=== PATIENT | female | born 1930 | race Caucasian/White ===

== ENCOUNTER 2016-10-29 10:13 | Inpatient (IN) | payer OTHER, MEDICARE ==
[~2016-10-29] VITALS: Ht 157.5 cm; Wt 79.4 kg
--- NOTE | 2016-10-29 10:22 | NUR ---
PT STATES THAT SHE HAS BEEN HAVING R FLANK PAIN FOR THE PAST COUPLE OF DAYS, PAIN HAS BEEN SEVERE SINCE LAST PM, DENIES V/D BUT HAS NAUSEA. DENIES BLOOD IN URINE, COMPLAINS OF INCREASED THIRST AND URINATING ALOT.
--- NOTE | 2016-10-29 10:30 | NUR ---
PT TO ROOM 2 VIA W/C. CHANGED INTO GOWN. ASSISTED TO STRETCHER, AWAITING PROVIDER EVAL.
--- NOTE | 2016-10-29 10:32 | ED GENERAL ADULT ---
History of Present Illness General Chief Complaint: General Adult Stated Complaint: NVD, R SIDE LOW BACK/HIP PAIN Source: patient, old records, friend Exam Limitations: no limitations Allergies Coded Allergies: codeine (UNKNOWN 10/29/15) Reconcile Medications Amlodipine Besylate 2.5 MG TABLET 1 TAB PO DAILY BP (Reported) Lisinopril 20 MG TABLET 1 TAB PO DAILY BP (Reported) Rosuvastatin Calcium (Crestor) 5 MG TABLET 1 TAB PO DAILY CHOLESTEROL ( Reported) Triage Note: PT STATES THAT SHE HAS BEEN HAVING R FLANK PAIN FOR THE PAST COUPLE OF DAYS, PAIN HAS BEEN SEVERE SINCE LAST PM, DENIES V/D BUT HAS NAUSEA. DENIES BLOOD IN URINE, COMPLAINS OF INCREASED THIRST AND URINATING ALOT. Triage Nurses Notes Reviewed? yes HPI: Patient is an 86-year-old female presents complaining of nausea, dry heaving, right low back pain. Symptoms onset at midnight. Pain is sharp, severe, worsens with palpation. Shaking chills onset upon arrival to the emergency department. Associated urinary urgency and frequency. Patient has taken Aleve with no improvement. Denies fevers, abdominal pain, hematuria, vomiting. (ROSA BALTAZAR) Vital Signs & Intake/Output Vital Signs & Intake/Output Vital Signs Date Time Temp Pulse Resp B/P Pulse O2 O2 Flow FiO2 Ox Delivery Rate 10/29 1234 97.6 102 18 102/55 94 Room Air 10/29 1230 95 Room Air 10/29 1042 99.1 10/29 1019 97.3 88 18 173/98 97 Room Air Past History Travel History Traveled to [place] past 21 day No Medical History Any Pertinent Medical History? see below for history Neurological: NONE EENT: NONE Cardiovascular: hypertension, hyperlipidemia Respiratory: NONE Gastrointestinal: NONE Hepatic: NONE Renal: NONE Musculoskeletal: NONE Psychiatric: NONE Endocrine: NONE Blood Disorders: NONE Cancer(s): colon/rectal cancer Surgical History Surgical History: thyroidectomy, partial colectomy Psychosocial History What is your primary language Citizen Of [place] Tobacco Use: Never used ETOH Use: denies use Illicit Drug Use: denies illicit drug use Family History Hx Contributory? No (ROSA BALTAZAR) Review of Systems Review of Systems Constitutional: Reports: chills, malaise, weakness. EENTM: Reports: no symptoms. Respiratory: Denies: cough, short of breath. Cardiovascular: Denies: chest pain. GI: Reports: nausea. Denies: abdominal pain, diarrhea, vomiting. Genitourinary: Reports: frequency, urgency. Musculoskeletal: Reports: back pain. Skin: Reports: no symptoms. Neurological/Psychological: Reports: no symptoms. Hematologic/Endocrine: Reports: no symptoms. Immunologic/Allergic: Reports: no symptoms. (ETHAN COHEN,ROSA) Physical Exam Physical Exam General Appearance: alert, awake, shaking chills Head: atraumatic, normal appearance Eyes: Bilateral: normal appearance, PERRL, EOMI. Ears, Nose, Throat: normal pharynx, normal ENT inspection, hearing grossly normal Neck: normal inspection, supple, full range of motion Respiratory: normal breath sounds, chest non-tender, no respiratory distress, lungs clear Cardiovascular: tachycardia (regular rhythm) Gastrointestinal: normal bowel sounds, soft, non-tender Back: normal inspection, normal range of motion, no vertebral tenderness, right lumbar paraspinal tenderness Extremities: normal inspection, normal capillary refill, normal range of motion, no edema Neurologic/Psych: no motor/sensory deficits, awake, alert, oriented x 3, normal gait, normal mood/affect Skin: intact, normal color, warm/dry Lymphatic: no anterior cervical clary Core Measures ACS in differential dx? No CVA/TIA Diagnosis: No Severe Sepsis Present: No Septic Shock Present: No (ETHAN COHEN,ROSA) Progress Differential Diagnoses I considered the following diagnoses in my evaluation of the patient: Kidney stone, urosepsis, bacteremia, intra-abdominal infection, AAA Diagnostic Imaging: Viewed by Me: CT Scan. Discussed w/RAD: CT Scan. Radiology Impression: PATIENT: FLEX YIP PRESENT AGE: 86 PATIENT ACCOUNT NO: [id number] : 31 LOCATION: [facility] ORDERING PHYSICIAN: ROSA COHEN SERVICE DATE: 10/29/16 EXAM TYPE: CAT - CT ABD & PELVIS W/O IV CONTRAS EXAMINATION: CT ABDOMEN AND PELVIS WITHOUT CONTRAST CLINICAL INFORMATION: Right back pain, chills, urgency and frequency. Evaluate for kidney stone. COMPARISON: None TECHNIQUE: Multidetector volumetric imaging was performed from the superior aspect of the liver through the pubic symphysis. Sagittal and coronal reformatted images were obtained on the technologist's workstation. DLP: 888 mGy-cm FINDINGS: SIDE BOSS: Obese body habitus. LUNG BASES: Minimal atelectasis in dependent aspect of each lower lobe. Linear focus of scar atelectasis in the lateral left lower lobe. Atherosclerotic calcification of coronary arteries and thoracic aorta. LIVER, GALLBLADDER, AND BILIARY TREE: Liver has normal size, contour and attenuation. Gallbladder is unremarkable. No intrahepatic or extrahepatic bile duct dilatation. PANCREAS: Unremarkable. SPLEEN: Prominent spleen measures 12.2 cm AP and 12 cm craniocaudal and at its hilum, it is 4.6 cm wide No focal splenic lesion. ADRENAL GLANDS: Unremarkable. Right KIDNEY: 1.1 cm hyperdense focus of 60 Hounsfield unit attenuation at the lower pole the right kidney is likely a hyperdense cyst. There is a 0.5 cm calculus within the renal pelvis associated with mild pelviectasis. There is perinephric and periureteral edema without focal fluid collection. The right ureter is normal in caliber and there is no evidence of ureterolithiasis. LEFT KIDNEY: 0.9 cm hyperdense focus at the medial aspect of the left upper pole has a density of 86 HU -- consistent with hyperdense cyst. No nephrolithiasis or hydronephrosis. The left ureter is normal in caliber and there is no evidence of ureterolithiasis. BLADDER: Unremarkable. GASTROINTESTINAL TRACT: Stomach is grossly unremarkable. Bowel loops are normal in caliber. There are few scattered colonic diverticula without diverticulitis. Intact rectosigmoid anastomosis is noted. No ascites. ABDOMINAL WALL: Fat- containing umbilical hernia measures 2.1 cm wide. LYMPH NODES: No pathologic sized lymph nodes within the abdomen or pelvis. VASCULAR: Atherosclerotic calcification of the abdominal aorta and iliac arteries without aneurysm. There are atherosclerotic calcifications of right renal artery branches. PELVIC VISCERA: Status post hysterectomy. No pelvic mass or free fluid. Multiple phleboliths are present within the lower pelvis. OSSEOUS STRUCTURES: No suspicious lesions within the degenerated lumbar spine. 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 Also, there is facet arthropathy of L4-L5 with minimal anterolisthesis of L4 on L5. There is osteoarthrosis of the sacroiliac joints and pubic symphysis. IMPRESSION: 1. Mild pelviectasis of the right kidney. The mildly dilated renal pelvis contains a 0.5 cm stone. The perinephric and periureteral edema is nonspecific. There are no stones identified within the nondilated right ureter. Consider correlation with urinalysis and culture to ensure absence of a superimposed urinary tract infection. 2. Hyperdense renal cysts. 3. Mild splenomegaly. 4. Fat-containing umbilical hernia. 5. Atherosclerosis of the aorta and branch vessels without aneurysm. DICTATED BY: YVES BRUNSON MD DATE/ TIME DICTATED:10/29/161220 STATE PATROL OFFICER:JOLENE DATE/TIME TRANSCRIBED: 10/29/161220 CONFIDENTIAL, DO NOT COPY WITHOUT APPROPRIATE AUTHORIZATION. < Electronically signed in Other Vendor System> SIGNED BY: YVES BRUNSON MD 10/29/16 1238 Initial ED EKG: none (ROSA BALTAZAR) Plan of Care: Orders Procedure Date/time Status Regular Diet 10/29 L Active LACTIC ACID 10/29 1342 Active Patient Data 10/29 1320 Active Admit to inpatient 10/29 1319 Active BLOOD CULTURE 10/29 1155 Active CULTURE,URINE 10/29 1042 Active BLOOD CULTURE 10/29 1042 Active URINALYSIS 10/29 1042 Complete LACTIC ACID 10/29 1042 Complete COMPREHENSIVE METABOLIC PANEL 10/29 1042 Complete CBC WITHOUT DIFFERENTIAL 10/29 1042 Complete Laboratory Tests 10/29/16 1218: Urinalysis LIGHT H, Urine Color YEL, Urine Clarity CLEAR, Urine pH 6.0, Ur Specific [place] 1.020, Urine Protein TRACE H, Urine Ketones NEG, Urine Nitrite NEG, Urine Bilirubin NEG, Urine Urobilinogen 0.2, Ur Leukocyte Esterase TRACE H , Ur Microscopic SEDIMENT EXAMINED, Urine RBC 10-15 H, Urine WBC 5-10 H, Ur Epithelial Cells FEW, Urine Bacteria FEW H, Hyaline Casts RARE H, Urine Mucus FEW, Urine Hemoglobin MOD H, Urine Glucose NEG 10/29/16 1136: Anion Gap 17 H, Estimated GFR 25 L, BUN/Creatinine Ratio 24.2, Glucose 99, Lactic Acid 2.0, Calcium 9.1, Total Bilirubin 0.9, AST 20, ALT 36, Alkaline Phosphatase 105, Total Protein 7.3, Albumin 3.9, Globulin 3.4, Albumin/Globulin Ratio 1.1, CBC w Diff MAN DIFF ORDERED, RBC 5.24, MCV 86.4, MCH 28.9, RDW 15.5 H, MPV 7.3 L, Gran % 85.9 H, Lymphocytes % 2.3 L, Monocytes % 8.9, Eosinophils % 0.4, Basophils % 2.5 H, Absolute Granulocytes 18.0 H, Segmented Neutrophils 84 H, Band Neutrophils 6 H, Absolute Lymphocytes 0.5 L, Lymphocytes 2 L, Monocytes 8, Absolute Monocytes 1.9 H, Absolute Eosinophils 0.1, Absolute Basophils 0.5, Platelet Estimate ADEQUATE, Normocytic RBCs VERIFIED, Normochromic RBCs VERIFIED, PUBS MCHC 33.4 Microbiology 10/29 1218 URINE ROUT: Urine Culture - RECD 10/29 1210 BLOOD: Blood Culture - RECD 10/29 1137 BLOOD: Blood Culture - CAN Cancelled: QNS 10/29 1110 BLOOD: Blood Culture - RECD Discussed with and seen by Dr. Yanez. 10/29/2016 12:13:59 PM: Patient significantly more comfortable, pain significantly improved and nausea improved. Awaiting results of labs and CT scan. 10/29/2016 1:12:55 PM: Results of labs and imaging discussed with patient. Discussed with Dr. Carl: will admit patient. (ROSA BALTAZAR) Departure Departure Disposition: STILL A PATIENT Condition: Stable Clinical Impression Primary Impression: Sepsis due to urinary tract infection Secondary Impressions: Acute kidney injury Referrals: CORWIN ANAND,HOLLY Carter (PCP/Family) Departure Forms: Customer Survey General Discharge Information Admission Note Spoke With: CARMEL CARL MD Documentation of Exam: Documentation of any treatments & extenuating circumstances including Concerns Regarding Discharge (functional status, medication knowledge or non-compliance, living conditions, etc.) that warrant an admission rather than observation: IV antibiotics, IV fluids, panculture. Patient meets sepsis criteria, concern for bacteremia with patient's rigors on presentation and her significant elevated white blood cell count. Concern for significant deterioration if discharged home. (ROSA BALTAZAR) PA/VISUALIZER Co-Sign Statement Statement: ED Attending supervision documentation- [x] I saw and evaluated the patient. I have also reviewed all the pertinent lab results and diagnostic results. I agree with the findings and the plan of care as documented in the PA's/VISUALIZER's documentation. [] I have reviewed the ED Record and agree with the PA's/VISUALIZER's documentation. [] Additions or exceptions (if any) to the PAs/VISUALIZER's note and plan are summarized below: [] ([facility] ANAND,VIV Downs) Critical Care Note Critical Care Note Critical Care Time: non-applicable (ETHAN COHEN,ROSA)
--- NOTE | 2016-10-29 11:00 | NUR ---
PT DIFFICULT STICK. IV ACCESS ATTEMPTED BY THIS RN AND URBAN BENAVIDEZ. BENJAMÍN RN AT BEDSIDE. PT BEGAN VOMITING DURING IV INSERTION.
--- NOTE | 2016-10-29 11:50 | NUR ---
TO CAT SCAN.
--- NOTE | 2016-10-29 11:56 | NUR ---
LAB CALLED, STATING THEY ARE "REJECTING" 2ND SET OF BLOOD CULTURE DUE TO INSUFFICIENT AMOUNT IN BOTTLE.
--- NOTE | 2016-10-29 11:58 | NUR ---
BACK FROM CAT SCAN
[2016-10-29 12:08] LABS: ABSOLUTE BASOPHIL COUNT 0.5 /CUMM (0.0-0.2); ABSOLUTE EOSINOPHIL COUNT 0.1 /CUMM (0.0-0.7); ABSOLUTE LYMPH COUNT 0.5 /CUMM (1.2-3.4); ABSOLUTE MONOCYTE COUNT 1.9 /CUMM (0.10-0.60); BASOPHIL % 2.5 % (0.0-2.0); EOSINOPHIL % 0.4 % (0-5); GRANULOCYTE % 85.9 % (42.2-75.2); HEMATOCRIT 45.3 % (37-47); MEAN CORPUSCULAR HGB 28.9 PG (27.0-31.0); MEAN CORPUSCULAR HGB CONC 33.4 G/DL (33.0-37.0); MEAN CORPUSCULAR VOLUME 86.4 FL (81.0-99.0); MEAN PLATELET VOLUME 7.3 FL (7.4-10.4); PLATELET COUNT 328 /CUMM (130-400); RBC DISTRIBUTION WIDTH 15.5 % (11.5-14.5); RED BLOOD CELL CT 5.24 /CUMM (4.20-5.40)
--- NOTE | 2016-10-29 12:17 | NUR ---
CRITICAL TEST RESULTS [id number] FLEX YIP 86 F TESTS AND RESULTS: LACTIC ACID 2.0 Results received and read back by: EARNEST GOFF Results received date and time: 10/29/16 1217 The following provider was notified of the results, and read the results back: VICKI LONG Notified date and time: 10/29/16 at 1217
--- NOTE | 2016-10-29 12:18 | NUR ---
URINE TRIO SENT.
--- NOTE | 2016-10-29 12:38 | CT SCAN REPORT ---
EXAMINATION: CT ABDOMEN AND PELVIS WITHOUT CONTRAST CLINICAL INFORMATION: Right back pain, chills, urgency and frequency. Evaluate for kidney stone. COMPARISON: None TECHNIQUE: Multidetector volumetric imaging was performed from the superior aspect of the liver through the pubic symphysis. Sagittal and coronal reformatted images were obtained on the technologist's workstation. 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 LUNG BASES: Minimal atelectasis in dependent aspect of each lower lobe. Linear focus of scar atelectasis in the lateral left lower lobe. Atherosclerotic calcification of coronary arteries and thoracic aorta. LIVER, GALLBLADDER, AND BILIARY TREE: Liver has normal size, contour and attenuation. Gallbladder is unremarkable. No intrahepatic or extrahepatic bile duct dilatation. PANCREAS: Unremarkable. SPLEEN: Prominent spleen measures 12.2 cm AP and 12 cm craniocaudal and at its hilum, it is 4.6 cm wide No focal splenic lesion. ADRENAL GLANDS: Unremarkable. Right KIDNEY: 1.1 cm hyperdense focus of 60 Hounsfield unit attenuation at the lower pole the right kidney is likely a hyperdense cyst. There is a 0.5 cm calculus within the renal pelvis associated with mild pelviectasis. There is perinephric and periureteral edema without focal fluid collection. The right ureter is normal in caliber and there is no evidence of ureterolithiasis. LEFT KIDNEY: 0.9 cm hyperdense focus at the medial aspect of the left upper pole has a density of 86 HU -- consistent with hyperdense cyst. No nephrolithiasis or hydronephrosis. The left ureter is normal in caliber and there is no evidence of ureterolithiasis. BLADDER: Unremarkable. GASTROINTESTINAL TRACT: Stomach is grossly unremarkable. Bowel loops are normal in caliber. There are few scattered colonic diverticula without diverticulitis. Intact rectosigmoid anastomosis is noted. No ascites. ABDOMINAL WALL: Fat-containing umbilical hernia measures 2.1 cm wide. LYMPH NODES: No pathologic sized lymph nodes within the abdomen or pelvis. VASCULAR: Atherosclerotic calcification of the abdominal aorta and iliac arteries without aneurysm. There are atherosclerotic calcifications of right renal artery branches. PELVIC VISCERA: Status post hysterectomy. No pelvic mass or free fluid. Multiple phleboliths are present within the lower pelvis. OSSEOUS STRUCTURES: No suspicious lesions within the degenerated lumbar spine. 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 Also, there is facet arthropathy of L4-L5 with minimal anterolisthesis of L4 on L5. There is osteoarthrosis of the sacroiliac joints and pubic symphysis. IMPRESSION: 1. Mild pelviectasis of the right kidney. The mildly dilated renal pelvis contains a 0.5 cm stone. The perinephric and periureteral edema is nonspecific. There are no stones identified within the nondilated right ureter. Consider correlation with urinalysis and culture to ensure absence of a superimposed urinary tract infection. 2. Hyperdense renal cysts. 3. Mild splenomegaly. 4. Fat-containing umbilical hernia. 5. Atherosclerosis of the aorta and branch vessels without aneurysm.
[2016-10-29] MEDS ORDERED: CRESTOR5 M1 PO (12:58)
[2016-10-29] MEDS ORDERED: LISINOPRIL20 M1 PO (12:58)
[2016-10-29] MEDS ORDERED: AMLODIPINE BES2.5 M1 PO (12:59)
--- NOTE | 2016-10-29 13:36 | History & Physical ---
JENNIFER ANAND,[facility] – [place] 10/29/16 1335: General Information and HPI MD Statement: I have seen and personally examined FLEX YIP and documented this H&P. The patient is a 86 year old F who presented with a patient stated chief complaint of right-sided flank/back pain. Source of Information: patient Exam Limitations: no limitations History of Present Illness: Ms. Yip is a 86 y/o F with PMHx of HTN, HLD, osteoarthritis and colon cancer in 1999 s/p resection who presents with right-sided flank/back pain for 2 days. Patient was in her usual state of health up until 3 days ago when she developed shaking chills, nausea with dry heaving, and mild diarrhea. Last night , she woke up with excruciating aching pain in her right flank, with minimal relief from a heat pad, which prompted her to call her close friend who brought her to the ED. Since the onset of symptoms, she has had decreased oral intake. She denies fever, abdominal pain, dysuria or vomiting. Allergies/Medications Allergies: Coded Allergies: codeine (UNKNOWN 10/29/15) Home Med list Amlodipine Besylate 2.5 MG TABLET 1 TAB PO DAILY BP (Reported) Lisinopril 20 MG TABLET 1 TAB PO DAILY BP (Reported) Rosuvastatin Calcium (Crestor) 5 MG TABLET 1 TAB PO DAILY CHOLESTEROL ( Reported) Past History Travel History Traveled to [place] past 21 day No Medical History Neurological: NONE EENT: NONE Cardiovascular: hypertension, hyperlipidemia Respiratory: NONE Gastrointestinal: NONE Hepatic: NONE Renal: NONE Musculoskeletal: fracture (elbow), osteoarthritis Psychiatric: NONE Endocrine: NONE Blood Disorders: NONE Cancer(s): colon/rectal cancer GENERAL PRODUCTION MANAGER/Reproductive: endometriosis Surgical History Surgical History: hysterectomy, thyroidectomy Past Family/Social History Psychosocial History Where do you live? Home Who Do You Live With? self Primary Language: German Smoking Status: Never Smoked ETOH Use: denies use Illicit Drug Use: denies illicit drug use Functional Ability ADLs Independent: dressing, eating, toileting, bathing. Ambulation: cane IADLs Independent: shopping, housework, finances, food prep, telephone, transportation , medication admin. Review of Systems Review of Systems Constitutional: Reports: chills. EENTM: Reports: no symptoms. Cardiovascular: Denies: chest pain. Respiratory: Denies: cough, short of breath. GI: Reports: nausea. Denies: abdominal pain, vomiting. Genitourinary: Reports: frequency. Denies: dysuria, urgency. Musculoskeletal: Reports: no symptoms. Skin: Reports: no symptoms. Neurological/Psychological: Reports: no symptoms. Hematologic/Endocrine: Reports: no symptoms. Immunologic/Allergic: Reports: no symptoms. All Other Systems: Reviewed and Negative Exam & Diagnostic Data Last 24 Hrs of Vital Signs/I&O Vital Signs Date Time Temp Pulse Resp B/P Pulse O2 O2 Flow FiO2 Ox Delivery Rate 10/29 2244 98.3 73 19 100/60 92 Room Air 10/29 1745 98.0 88 20 92/58 94 Room Air 10/29 1454 97.8 99 18 103/59 95 Room Air 10/29 1234 97.6 102 18 102/55 94 Room Air 10/29 1230 95 Room Air 10/29 1042 99.1 10/29 1019 97.3 88 18 173/98 97 Room Air Intake & Output 10/29 1600 10/29 0800 10/29 0000 Intake Total 1000 Output Total Balance 1000 Intake, IV 1000 Physical Exam General Appearance Alert, Oriented X3, No Acute Distress HEENT Dry Mucous Membranes Neck Supple Cardiovascular Regular Rate, Normal S1, Normal S2 Lungs Clear to Auscultation Abdomen Soft, No Tenderness, Positive Bowel Sounds, No CVA Tenderness Bilaterally Extremities No Clubbing, No Cyanosis, Trace Edema on Bilateral Lower Extremities Last 24 Hrs of Labs/[place]: Laboratory Tests 10/29/16 1350: Lactic Acid 1.0 10/29/16 1218: Urinalysis LIGHT H, Urine Color YEL, Urine Clarity CLEAR, Urine pH 6.0, Ur Specific [place] 1.020, Urine Protein TRACE H, Urine Ketones NEG, Urine Nitrite NEG, Urine Bilirubin NEG, Urine Urobilinogen 0.2, Ur Leukocyte Esterase TRACE H , Ur Microscopic SEDIMENT EXAMINED, Urine RBC 10-15 H, Urine WBC 5-10 H, Ur Epithelial Cells FEW, Urine Bacteria FEW H, Hyaline Casts RARE H, Urine Mucus FEW, Urine Hemoglobin MOD H, Urine Glucose NEG 10/29/16 1136: Anion Gap 17 H, Estimated GFR 25 L, BUN/Creatinine Ratio 24.2, Glucose 99, Lactic Acid 2.0, Calcium 9.1, Total Bilirubin 0.9, AST 20, ALT 36, Alkaline Phosphatase 105, Total Protein 7.3, Albumin 3.9, Globulin 3.4, Albumin/Globulin Ratio 1.1, CBC w Diff MAN DIFF ORDERED, RBC 5.24, MCV 86.4, MCH 28.9, RDW 15.5 H, MPV 7.3 L, Gran % 85.9 H, Lymphocytes % 2.3 L, Monocytes % 8.9, Eosinophils % 0.4, Basophils % 2.5 H, Absolute Granulocytes 18.0 H, Segmented Neutrophils 84 H, Band Neutrophils 6 H, Absolute Lymphocytes 0.5 L, Lymphocytes 2 L, Monocytes 8, Absolute Monocytes 1.9 H, Absolute Eosinophils 0.1, Absolute Basophils 0.5, Platelet Estimate ADEQUATE, Normocytic RBCs VERIFIED, Normochromic RBCs VERIFIED, PUBS MCHC 33.4 Diagnostic Data Other Results CT ABDOMEN/PELVIS W/O CONTRAST: 1. Mild pelviectasis of the right kidney. The mildly dilated renal pelvis contains a 0.5 cm stone. The perinephric and periureteral edema is nonspecific. There are no stones identified within the nondilated right ureter. Consider correlation with urinalysis and culture to ensure absence of a superimposed urinary tract infection. 2. Hyperdense renal cysts. 3. Mild splenomegaly. 4. Fat-containing umbilical hernia. 5. Atherosclerosis of the aorta and branch vessels without aneurysm. Assessment/Plan Assessment: Ms. Yip is a 86 y/o F with PMHx of HTN, HLD, osteoarthritis and colon cancer in 2000 s/p resection who presents with right-sided flank/back pain for 2 days. #UTI: Afebrile and hemodynamically stable with qSOFA score of 0 on initial presentation but with leukocytosis and bandemia, WBC 21 with 6 bands, as well as lactic acidosis consistent with infection. Urine with 5-10 WBCs and trace leukocyte esterase. BP elevated to 173/98 on initial presentation but later dropped to 92/58. Received IVF with improvement of lactate from 2 on admission to 1. Ceftriaxone administered in the ED. CT Abdomen/Pelvis with mildly dilated renal pelvis containing 0.5 cm stone, unclear whether it is obstructive. * Urology consulted. Appreciate their recs. * Continue ceftriaxone 1 g IV daily. * Continue gentle IV hydration with NS @ 75 cc/hr. * Follow UCx and BCx. * Tylenol 650 mg PO Q6H for mild pain (scale 1-3) and morphine 2 mg IV Q6H PRN for severe pain (scale 7-10). #MARY: Creatinine elevated to 1.9 on admission. Most recent creatinine was 1.0- 1.2 in 2011. Differential includes dehydration vs. obstructive uropathy. * Avoid nephrotoxic medications including NSAIDs. #HTN: Takes amlodipine 2.5 mg PO daily and lisinopril 20 mg PO daily at home. * Hold home antihypertensives in the setting of hypotension. #HLD: Takes rosuvastatin 5 mg PO daily. * Start atorvastatin 5 mg PO daily. Diet: Heart Healthy Diet DVT PPx: HSQ and ALPs CODE: FULL As Ranked By This Provider Problem List: 1. Acute kidney injury 2. UTI (urinary tract infection) 3. Kidney stone 4. HTN (hypertension) Core Measures/Miscellaneous Acute Coronary Syndrome ACS Diagnosis: No Cerebrovascular Accident CVA/TIA Diagnosis: No Congestive Heart Failure CHF Diagnosis: No Venous Thromboembolism VTE Risk Factors: Acute medical illness, Age > 40, Obesity No [facility] VTE prophylaxis d/t: No contraindications No VTE Pharm Prophylaxis d/t: No contraindications VTE Diagnosis: No VTE Type: NONE VTE Confirmed by (Test): NONE Severe Sepsis Severe Sepsis Present: No Septic Shock Septic Shock Present: No Miscellaneous Documentation Attending Case Discussed With: JANIA SHAH MD Primary Care Physician: HOLLY OLIVIA MD Patient sees these Specialists Diamond Sizer Lety Mcleod PA-C Associate Director Of Biostatistics Dr. Osvaldo Chan Level of Patient Care: General Medicine LELO QUIROGA 10/29/16 1438: Resident Review Statement Resident Statement: agreed with international project engineer Other Findings: She is 86-year-old woman with past medical history of hypertension, colon cancer in 1999 status post resection and chemotherapy and osteoarthritis presented to ER with complaint of urinary frequency, shaking chills for last 2 days. Last night she woke up with severe pain in her right flank area. She describes the pain as sharp, constant, 10/10 in intensity, nonradiating. She tried heat pad and Aleve but did not help. She was also complaining of nausea and dry heaving. Denies any hematuria, burning micturition, dysuria, chest pain/discomfort, palpitations, breathing difficulty, abdominal pain, diarrhea or constipation. She lives by herself. She is independent for ADLs. Denies smoking, drinking alcohol or use of illicit drugs. Family history is positive for breast cancer, colon cancer, epilepsy, heart problems. Surgical history significant for colon resection, partial thyroidectomy and hysterectomy. Vitals on admission: Temperature 97.6, pulse 102, respiratory rate 18, blood pressure 173/98 and oxygen saturation 97% on room air Pertinent physical exam findings: Alert, awake and oriented 3. Dry mucous membranes. No CVA tenderness. Abdominal exam unremarkable. Pertinent Labs: WBC count 21, BUN 46, creatinine 1.9, anion gap 17, lactic acid 2, UA is positive for bacteria with 5-10-[address] abdomen and pelvis without IV contrast showed Mild pelviectasis of the right kidney. The mildly dilated renal pelvis contains a 0.5 cm stone. Hyperdense renal cyst. Mild splenomegaly. Fat-containing umbilical hernia. Atherosclerosis of aorta and branches. In ER she got IV morphine, IV fluids, Zofran and IV ceftriaxone. Assessment and plan She is 86-year-old woman with past medical history of hypertension, colon cancer in 1999 status post resection and chemotherapy and osteoarthritis is going to be admitted on general medicine floor for: 1. Urosepsis 2. Positive CT abdomen and pelvis findings suggesting mild pelviectasis and 0.5 cm stone of Right kidney. Hyperdense renal cysts. We will monitor vitals closely. Continue IV antibiotics, ceftriaxone. Follow- up blood and urine cultures. Pain management with Tylenol and morphine. Urology consult. Monitor kidney functions. Avoid nephrotoxins. For now we will hold her amlodipine and lisinopril. Heart healthy diet. Pain management pathway. Subcutaneous heparin for DVT prophylaxis. Full code. ALYSSA ANAND,[facility] 10/29/16 1628: Attending MD Review Statement Attending Statement Attending MD Statement: examined this patient, discuss w/resident/PA/SUBMERSIBLE PILOT, agreed w/resident/PA/SUBMERSIBLE PILOT, reviewed EMR data (avail), discussed with nursing, reviewed images, amended to note Attending Assessment/Plan: 86-year-old female with past medical history significant for hypertension, hyperlipidemia, history of colon cancer status post resection, history of osteoarthritis presented with complained off right sided back pain. Patient had developed some shaking chills 2 or 3 days ago and then 2 days ago she developed right flank/back pain. It got worse last night therefore this morning she presented to the emergency room. She denies any hematuria or dysuria. She denies any lower abdominal pain. She had some nauseousness and had some dry heaving last night. She denies having any fever. She received morphine in the emergency room and currently denies any pain. Vital Signs Date Time Temp Pulse Resp B/P Pulse O2 O2 Flow FiO2 Ox Delivery Rate 10/29 1454 97.8 99 18 103/59 95 Room Air 10/29 1234 97.6 102 18 102/55 94 Room Air 10/29 1230 95 Room Air 10/29 1042 99.1 10/29 1019 97.3 88 18 173/98 97 Room Air on exam; aox3, nad. cv; s1,s2, rrr resp; clear abd; soft, nt, bs+ No CVA tenderness. ext; trace edema. Laboratory Tests 10/29 10/29 1350 1218 Chemistry Lactic Acid (0.7 - 2.1 mmol/L) 1.0 Urines Urinalysis LIGHT H Urine Color (YEL,AMB,STR) YEL Urine Clarity (CLEAR) CLEAR Urine pH (5.0 - 8.0) 6.0 Ur Specific [place] (1.001 - 1.035) 1.020 Urine Protein (NEG,<30 MG/DL) TRACE H Urine Ketones (NEG) NEG Urine Nitrite (NEG) NEG Urine Bilirubin (NEG) NEG Urine Urobilinogen (0.1 - 1.0 EU/dl) 0.2 Ur Leukocyte Esterase (NEG) TRACE H Ur Microscopic SEDIMENT EXAMINED Urine RBC (0 - 5 /HPF) 10-15 H Urine WBC (0 - 2 /HPF) 5-10 H Ur Epithelial Cells (NONE,FEW) FEW Urine Bacteria (NEG/NONE) FEW H Hyaline Casts (0/LPF) RARE H Urine Mucus (FEW,NONE) FEW Urine Hemoglobin (NEG) MOD H Urine Glucose (N MG/DL) NEG 10/29 1136 Chemistry Sodium (137 - 145 mmol/L) 143 Potassium (3.5 - 5.1 mmol/L) 4.3 Chloride (98 - 107 mmol/L) 106 Carbon Dioxide (22 - 30 mmol/L) 20 L Anion Gap (5 - 16) 17 H BUN (7 - 17 mg/dL) 46 H Creatinine (0.5 - 1.0 mg/dL) 1.9 H Estimated GFR (>60 ml/min) 25 L BUN/Creatinine Ratio (7 - 25 %) 24.2 Glucose (65 - 99 mg/dL) 99 Lactic Acid (0.7 - 2.1 mmol/L) 2.0 Calcium (8.4 - 10.2 mg/dL) 9.1 Total Bilirubin (0.2 - 1.3 mg/dL) 0.9 AST (14 - 36 U/L) 20 ALT (9 - 52 U/L) 36 Alkaline Phosphatase (<127 U/L) 105 Total Protein (6.3 - 8.2 g/dL) 7.3 Albumin (3.5 - 5.0 g/dL) 3.9 Globulin (1.9 - 4.2 gm/dL) 3.4 Albumin/Globulin Ratio (1.1 - 2.2 %) 1.1 Hematology CBC w Diff MAN DIFF ORDERED WBC (4.8 - 10.8 /CUMM) 21.0 H RBC (4.20 - 5.40 /CUMM) 5.24 Hgb (12.0 - 16.0 G/DL) 15.1 Hct (37 - 47 %) 45.3 MCV (81.0 - 99.0 FL) 86.4 MCH (27.0 - 31.0 PG) 28.9 RDW (11.5 - 14.5 %) 15.5 H Plt Count (130 - 400 /CUMM) 328 MPV (7.4 - 10.4 FL) 7.3 L Gran % (42.2 - 75.2 %) 85.9 H Lymphocytes % (20.5 - 51.1 %) 2.3 L Monocytes % (1.7 - 9.3 %) 8.9 Eosinophils % (0 - 5 %) 0.4 Basophils % (0.0 - 2.0 %) 2.5 H Absolute Granulocytes (1.4 - 6.5 /CUMM) 18.0 H Segmented Neutrophils (42.2 - 75.2 %) 84 H Band Neutrophils (0.0 - 5.0 %) 6 H Absolute Lymphocytes (1.2 - 3.4 /CUMM) 0.5 L Lymphocytes (20.5 - 51.1 %) 2 L Monocytes (1.7 - 9.3 %) 8 Absolute Monocytes (0.10 - 0.60 /CUMM) 1.9 H Absolute Eosinophils (0.0 - 0.7 /CUMM) 0.1 Absolute Basophils (0.0 - 0.2 /CUMM) 0.5 Platelet Estimate (ADEQUATE) ADEQUATE Normocytic RBCs VERIFIED Normochromic RBCs VERIFIED PUBS MCHC (33.0 - 37.0 G/DL) 33.4 CT abd/pelvis: IMPRESSION: 1. Mild pelviectasis of the right kidney. The mildly dilated renal pelvis contains a 0.5 cm stone. The perinephric and periureteral edema is nonspecific. There are no stones identified within the nondilated right ureter. Consider correlation with urinalysis and culture to ensure absence of a superimposed urinary tract infection. 2. Hyperdense renal cysts. 3. Mild splenomegaly. 4. Fat-containing umbilical hernia. 5. Atherosclerosis of the aorta and branch vessels without aneurysm. A/P; 86-year-old female with past medical history significant for hypertension, hyperlipidemia, history of colon cancer status post resection, history of osteoarthritis admitted with sepsis secondary to UTI and also has right renal pelvic stone with AK I which could be secondary to dehydration versus obstructive uropathy. Patient admitted to medicine. Initial lactate was at 2 but repeat lactate came out at one. Will continue gentle IV hydration and treat her with antibiotics. Please follow -up cultures. Currently she denies any pain therefore we can keep her on Tylenol for mild pain pain management and low-dose morphine for severe pain. Will avoid NSAIDS. Will consult urology. We will hold her antihypertensives as her blood pressure is running on the low side. DVT px: hep sq. She is a full code
--- NOTE | 2016-10-29 13:50 | NUR ---
REPEAT LACTIC ACID SENT. LUNCH ORDERED. HOUSESTAFF IN FOR EVAL.
--- NOTE | 2016-10-29 14:24 | NUR ---
EATING LUNCH. AWAITING BED ASSIGNMENT ON GEN Elevation Lab. Informed waiting has been performed.
--- NOTE | 2016-10-29 15:24 | Cons- Urology ---
General Information and HPI Consulting Request Date of Consult: 10/29/16 Requested By: ALYSSA ANAND,JANIA Reason for Consult: UTI with non obstructing right renal pelvis stone. Source of Information: patient, old records Exam Limitations: no limitations History of Present Illness: 86 year old seen inER with vague abdominal pain, right hip pain. CT confirms right non-obstructing renal stone. WBC 21 with Ucx pending. Pt currently pain free, hemodynamically stable. For admission on IV fluids and antibiotics. will monitor closely if need for stent arrises. Allergies/Medications Allergies: Coded Allergies: codeine (UNKNOWN 10/29/15) Home Med List: Amlodipine Besylate 2.5 MG TABLET 1 TAB PO DAILY BP (Reported) Lisinopril 20 MG TABLET 1 TAB PO DAILY BP (Reported) Rosuvastatin Calcium (Crestor) 5 MG TABLET 1 TAB PO DAILY CHOLESTEROL ( Reported) Current Medications: Current Medications Sig/Deena Start time Last Medication Dose Route Stop Time Status Admin Acetaminophen 650 MG Q6P PRN 10/29 1445 AC PO Atorvastatin Calcium 2.5 MG DAILY 10/30 1000 UNVr PO Ceftriaxone Sodium 1,000 MG DAILY 10/30 1000 AC IV Ceftriaxone Sodium 0 .STK-MED ONE 10/29 1246 DC .ROUTE Ceftriaxone Sodium 1,000 MG ONCE ONE 10/29 1245 DC 10/29 IV 10/29 1246 1245 Heparin Sodium 5,000 UNIT Q8 10/29 2200 AC (Porcine) SC Morphine Sulfate 2 MG Q6P PRN 10/29 1445 AC IV Morphine Sulfate 0 .STK-MED ONE 10/29 1109 DC .ROUTE Morphine Sulfate 2 MG ONCE ONE 10/29 1045 DC 10/29 IV 10/29 1046 1120 Ondansetron HCl 0 .STK-MED ONE 10/29 1109 DC .ROUTE Ondansetron HCl 4 MG ONCE ONE 10/29 1045 DC 10/29 IV 10/29 1046 1120 Sodium Chloride 1,000 ML Q13H 10/29 1500 AC IV 10/30 0359 Sodium Chloride 1,000 ML BOLUS ONE 10/29 1230 DC 10/29 IV 10/29 1329 1400 Sodium Chloride 1,000 ML BOLUS ONE 10/29 1200 DC 10/29 IV 10/29 1259 1150 Past History Medical History Neurological: NONE EENT: NONE Cardiovascular: hypertension, hyperlipidemia Respiratory: NONE Gastrointestinal: NONE Hepatic: NONE Renal: NONE Musculoskeletal: NONE Psychiatric: NONE Endocrine: NONE Blood Disorders: NONE Cancer(s): colon/rectal cancer Surgical History Pertinent Surgical History: thyroidectomy, partial colectomy Psychosocial History ETOH Use: denies use Illicit Drug Use: denies illicit drug use Employment History Retired? yes Review of Systems Review of Systems Constitutional: Denies: no symptoms. EENTM: Denies: no symptoms. Cardiovascular: Denies: no symptoms. Respiratory: Denies: no symptoms. Genitourinary: Denies: no symptoms. Musculoskeletal: Denies: no symptoms. Skin: Denies: no symptoms. Exam & Diagnostic Data Vital Signs and I&O Vital Signs Date Time Temp Pulse Resp B/P Pulse O2 O2 Flow FiO2 Ox Delivery Rate 10/29 1454 97.8 99 18 103/59 95 Room Air 10/29 1234 97.6 102 18 102/55 94 Room Air 10/29 1230 95 Room Air 10/29 1042 99.1 10/29 1019 97.3 88 18 173/98 97 Room Air Intake & Output 10/29 1600 10/29 0800 10/29 0000 10/28 1600 10/28 0800 10/28 0000 Intake Total 1000 Output Total Balance 1000 Intake, IV 1000 Physical Exam General Appearance: well developed/nourished, no apparent distress Head: atraumatic Eyes: Bilateral: normal appearance. Ears, Nose, Throat: normal pharynx Respiratory: normal breath sounds Cardiovascular: regular rate/rhythm Gastrointestinal: normal bowel sounds, soft, non-tender Back: no vertebral tenderness Extremities: normal inspection Skin: intact, normal color, warm/dry Last 24 Hours of Labs: Laboratory Tests 10/29 10/29 1350 1218 Chemistry Lactic Acid (0.7 - 2.1 mmol/L) 1.0 Urines Urinalysis LIGHT H Urine Color (YEL,AMB,STR) YEL Urine Clarity (CLEAR) CLEAR Urine pH (5.0 - 8.0) 6.0 Ur Specific [place] (1.001 - 1.035) 1.020 Urine Protein (NEG,<30 MG/DL) TRACE H Urine Ketones (NEG) NEG Urine Nitrite (NEG) NEG Urine Bilirubin (NEG) NEG Urine Urobilinogen (0.1 - 1.0 EU/dl) 0.2 Ur Leukocyte Esterase (NEG) TRACE H Ur Microscopic SEDIMENT EXAMINED Urine RBC (0 - 5 /HPF) 10-15 H Urine WBC (0 - 2 /HPF) 5-10 H Ur Epithelial Cells (NONE,FEW) FEW Urine Bacteria (NEG/NONE) FEW H Hyaline Casts (0/LPF) RARE H Urine Mucus (FEW,NONE) FEW Urine Hemoglobin (NEG) MOD H Urine Glucose (N MG/DL) NEG 10/29 1136 Chemistry Sodium (137 - 145 mmol/L) 143 Potassium (3.5 - 5.1 mmol/L) 4.3 Chloride (98 - 107 mmol/L) 106 Carbon Dioxide (22 - 30 mmol/L) 20 L Anion Gap (5 - 16) 17 H BUN (7 - 17 mg/dL) 46 H Creatinine (0.5 - 1.0 mg/dL) 1.9 H Estimated GFR (>60 ml/min) 25 L BUN/Creatinine Ratio (7 - 25 %) 24.2 Glucose (65 - 99 mg/dL) 99 Lactic Acid (0.7 - 2.1 mmol/L) 2.0 Calcium (8.4 - 10.2 mg/dL) 9.1 Total Bilirubin (0.2 - 1.3 mg/dL) 0.9 AST (14 - 36 U/L) 20 ALT (9 - 52 U/L) 36 Alkaline Phosphatase (<127 U/L) 105 Total Protein (6.3 - 8.2 g/dL) 7.3 Albumin (3.5 - 5.0 g/dL) 3.9 Globulin (1.9 - 4.2 gm/dL) 3.4 Albumin/Globulin Ratio (1.1 - 2.2 %) 1.1 Hematology CBC w Diff MAN DIFF ORDERED WBC (4.8 - 10.8 /CUMM) 21.0 H RBC (4.20 - 5.40 /CUMM) 5.24 Hgb (12.0 - 16.0 G/DL) 15.1 Hct (37 - 47 %) 45.3 MCV (81.0 - 99.0 FL) 86.4 MCH (27.0 - 31.0 PG) 28.9 RDW (11.5 - 14.5 %) 15.5 H Plt Count (130 - 400 /CUMM) 328 MPV (7.4 - 10.4 FL) 7.3 L Gran % (42.2 - 75.2 %) 85.9 H Lymphocytes % (20.5 - 51.1 %) 2.3 L Monocytes % (1.7 - 9.3 %) 8.9 Eosinophils % (0 - 5 %) 0.4 Basophils % (0.0 - 2.0 %) 2.5 H Absolute Granulocytes (1.4 - 6.5 /CUMM) 18.0 H Segmented Neutrophils (42.2 - 75.2 %) 84 H Band Neutrophils (0.0 - 5.0 %) 6 H Absolute Lymphocytes (1.2 - 3.4 /CUMM) 0.5 L Lymphocytes (20.5 - 51.1 %) 2 L Monocytes (1.7 - 9.3 %) 8 Absolute Monocytes (0.10 - 0.60 /CUMM) 1.9 H Absolute Eosinophils (0.0 - 0.7 /CUMM) 0.1 Absolute Basophils (0.0 - 0.2 /CUMM) 0.5 Platelet Estimate (ADEQUATE) ADEQUATE Normocytic RBCs VERIFIED Normochromic RBCs VERIFIED PUBS MCHC (33.0 - 37.0 G/DL) 33.4 Imaging Results: PATIENT: FLEX YIP PRESENT AGE: 86 PATIENT ACCOUNT NO: [id number] : 31 LOCATION: [facility] ORDERING PHYSICIAN: ROSA COHEN SERVICE DATE: 10/29/16 EXAM TYPE: CAT - CT ABD & PELVIS W/O IV CONTRAS EXAMINATION: CT ABDOMEN AND PELVIS WITHOUT CONTRAST CLINICAL INFORMATION: Right back pain, chills, urgency and frequency. Evaluate for kidney stone. COMPARISON: None TECHNIQUE: Multidetector volumetric imaging was performed from the superior aspect of the liver through the pubic symphysis. Sagittal and coronal reformatted images were obtained on the technologist's workstation. 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 LUNG BASES: Minimal atelectasis in dependent aspect of each lower lobe. Linear focus of scar atelectasis in the lateral left lower lobe. Atherosclerotic calcification of coronary arteries and thoracic aorta. LIVER, GALLBLADDER, AND BILIARY TREE: Liver has normal size, contour and attenuation. Gallbladder is unremarkable. No intrahepatic or extrahepatic bile duct dilatation. PANCREAS: Unremarkable. SPLEEN: Prominent spleen measures 12.2 cm AP and 12 cm craniocaudal and at its hilum, it is 4.6 cm wide No focal splenic lesion. ADRENAL GLANDS: Unremarkable. Right KIDNEY: 1.1 cm hyperdense focus of 60 Hounsfield unit attenuation at the lower pole the right kidney is likely a hyperdense cyst. There is a 0.5 cm calculus within the renal pelvis associated with mild pelviectasis. There is perinephric and periureteral edema without focal fluid collection. The right ureter is normal in caliber and there is no evidence of ureterolithiasis. LEFT KIDNEY: 0.9 cm hyperdense focus at the medial aspect of the left upper pole has a density of 86 HU -- consistent with hyperdense cyst. No nephrolithiasis or hydronephrosis. The left ureter is normal in caliber and there is no evidence of ureterolithiasis. BLADDER: Unremarkable. GASTROINTESTINAL TRACT: Stomach is grossly unremarkable. Bowel loops are normal in caliber. There are few scattered colonic diverticula without diverticulitis. Intact rectosigmoid anastomosis is noted. No ascites. ABDOMINAL WALL: Fat-containing umbilical hernia measures 2.1 cm wide. LYMPH NODES: No pathologic sized lymph nodes within the abdomen or pelvis. VASCULAR: Atherosclerotic calcification of the abdominal aorta and iliac arteries without aneurysm. There are atherosclerotic calcifications of right renal artery branches. PELVIC VISCERA: Status post hysterectomy. No pelvic mass or free fluid. Multiple phleboliths are present within the lower pelvis. OSSEOUS STRUCTURES: No suspicious lesions within the degenerated lumbar spine. 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 Also, there is facet arthropathy of L4-L5 with minimal anterolisthesis of L4 on L5. There is osteoarthrosis of the sacroiliac joints and pubic symphysis. IMPRESSION: 1. Mild pelviectasis of the right kidney. The mildly dilated renal pelvis contains a 0.5 cm stone. The perinephric and periureteral edema is nonspecific. There are no stones identified within the nondilated right ureter. Consider correlation with urinalysis and culture to ensure absence of a superimposed urinary tract infection. 2. Hyperdense renal cysts. 3. Mild splenomegaly. 4. Fat-containing umbilical hernia. 5. Atherosclerosis of the aorta and branch vessels without aneurysm. Assessment/Plan Assessment/Plan pt to be admitted for hydration and IV abx. will monitor closelyfor need of stent-currently feels great/asymptomatic Copies To: HAMILTON MARTINES MD Consult Acknowledgment - Thank you for your consult request. Attending MD Review Statement Attending Statement Attending MD Statement: examined this patient, discuss w/resident/PA/WIRELESS CELLULAR TECHNICIAN Attending Assessment/Plan: pt to be on ivf and abx. will monitor for need to stent-at this time pt defervesing quickly and asymptomatic. if overall improves, would send home on abx and f/u for right ESWL in near future.
--- NOTE | 2016-10-29 15:59 | NUR ---
DINNER TRAY PROVIDED.
--- NOTE | 2016-10-29 16:17 | NUR ---
PT TO ROOM [id number]
--- NOTE | 2016-10-29 16:40 | Admission Certification ---
Admission Certification Certification Statement - As attending physician, I certify that at the time of - admission, based on clinical presentation, severity of - symptoms, need for further diagnostic testing and - therapeutic interventions, and risk of adverse outcomes - without in-hospital treatment, in my clinical assessment, - this patient requires an acute hospital stay for a minimum - of two nights or longer. I have also considered psychsocial - factors such as support system, advanced age, financial - issues, cognitive issues, and failed out-patient treatments, - past re-admission history, safety of patient, and lack of - compliance as applicable. Specific rationale supporting this admission is: Patient admitted with sepsis secondary to UTI. She needs IV antibiotics and IV fluids.
--- NOTE | 2016-10-29 16:55 | NUR ---
REPORT GIVEN TO PRAMOD AGRAWAL AND TRANSPORT CALLED
[2016-10-29 17:45] VITALS: BP 92/58
--- NOTE | 2016-10-29 19:01 | NUR ---
LATE ENTRY: 1730 PT ARRIVED TO FLOOR FROM ER. PT A&OX3, RA, VSS, AFEBRILE, DENIES PAIN, NO DISTRESS. PT ORIENTED TO FLOOR. IV FLUIDS INFUSING THROUGH LH #[id number]. WILL CONTINUE TO MONITOR.
[2016-10-29 22:44] VITALS: BP 100/60
--- NOTE | 2016-10-30 07:00 | PN- Housestaff ---
Subjective Follow-up For: Sepsis 2/2 UTI Right renal pevlic stone MARY Subjective: No acute events overnight. Patient seen and examined this morning. She feels much better today. Right back/flank pain has resolved. She denies nausea or vomiting. Review of Systems Constitutional: Reports: no symptoms. Objective Last 24 Hrs of Vital Signs/I&O Vital Signs Date Time Temp Pulse Resp B/P Pulse O2 O2 Flow FiO2 Ox Delivery Rate 10/30 1452 98.0 86 20 125/68 93 10/30 0710 97.9 71 19 102/68 94 Room Air 10/29 2244 98.3 73 19 100/60 92 Room Air Intake & Output 10/30 1600 10/30 0800 10/30 0000 Intake Total 391 881 1728 Output Total Balance 648 095 2761 Intake, IV 0 600 Intake, Oral 600 250 400 Number 0 Bowel Movements Patient 79.379 kg Weight Physical Exam General Appearance: Alert, Oriented X3, No Acute Distress HEENT: Mucous Membr. moist/pink Neck: Supple Cardiovascular: Regular Rate, Normal S1, Normal S2 Lungs: Clear to Auscultation Abdomen: Soft, No Tenderness, Positive Bowel Sounds, No CVA Tenderness Bilaterally Extremities: No Clubbing, No Cyanosis, No Edema Current Medications: Current Medications Sig/Deena Start time Last Medication Dose Route Stop Time Status Admin Acetaminophen 650 MG Q6P PRN 10/29 1445 AC PO Atorvastatin Calcium 5 MG DAILY 10/30 1000 AC 10/30 PO 0833 Ceftriaxone Sodium 1,000 MG DAILY 10/30 1000 AC 10/30 IV 0834 Heparin Sodium 5,000 UNIT Q8 10/29 2200 AC 10/30 (Porcine) SC 2123 Morphine Sulfate 2 MG Q6P PRN 10/29 1445 AC IV Patient Medication 1 ED .STK-MED ONE 10/30 1410 UT Teaching ED 10/30 1411 Polyethylene Glycol 17 GM DAILY 10/30 1000 AC 10/30 PO 0834 Senna/Docusate Sodium 1 TAB BID 10/30 1000 AC PO Sodium Chloride 1,000 ML Q13H 10/29 1500 DC 10/29 IV 10/30 0359 1704 Last 24 Hrs of Lab/Didier Results Last 24 Hrs of Labs/Mics: Laboratory Tests 10/30/16 0705: Anion Gap 11, Estimated GFR 36 L, BUN/Creatinine Ratio 28.6 H, CBC w Diff NO MAN DIFF REQ, RBC 4.50, MCV 88.0, MCH 29.0, RDW 16.6 H, MPV 7.6, Gran % 79.0 H , Lymphocytes % 8.5 L, Monocytes % 12.0 H, Eosinophils % 0.5, Basophils % 0 L , Absolute Granulocytes 13.6 H, Absolute Lymphocytes 1.5, Absolute Monocytes 2.1 H, Absolute Eosinophils 0.1, Absolute Basophils 0, PUBS MCHC 32.9 L BCx (10/29/16): Gram negative rods UCx (10/29/16): Gram negative rods Assessment/Plan Assessment: 86 y/o F with PMHx of HTN, HLD and colon cancer in 1999 s/p resection who is admitted for sepsis 2/2 UTI, with a right renal pelvic stone found on imaging. #Sepsis 2/2 UTI: On day 2 of ceftriaxone with significant clinical improvement. Remains afebrile and with improving leukocytosis. BCx and UCx from admission both growing gram negative rods, speciation and susceptibilities pending. * Continue ceftriaxone 1 g IV daily for 1 more day. * Anticipated discharge tomorrow pending continued clinical improvement and finalization of culture results. * Will discharge home on a total of 14 days of antibiotics for acute complicated UTI in the setting of MARY. Adjust discharge antibiotics pending BCx and UCx results. * No interventions planned by urology as patient is asymptomatic. Follow up as outpatient for possible right ESWL. #MARY: Cr has improved to 1.4 from 1.9 on admission. Most likely prerenal given improvement with IV fluids. * Recheck Cr in the AM. * Avoid nephrotoxic medications. #HTN: Blood pressure stable. Takes amlodipine 2.5 mg PO daily and lisinopril 20 mg PO daily at home which were held due to hypotension. * Consider resuming prior to admission amlodipine if blood pressure increases. * Continue to hold lisinopril in the setting of MARY. Diet: Heart Healthy DVT PPx: HSQ and ALPs CODE: FULL Problem List: 1. UTI (urinary tract infection) 2. Acute kidney injury 3. Sepsis due to urinary tract infection 4. HTN (hypertension) 5. HLD (hyperlipidemia) 6. Right kidney stone Pain Ratin Pain Location: N/A Pain Goal: Remain pain free Pain Plan: Morphine 2 mg IV Q6H PRN for severe pain (scale 7-10) Tylenol 650 mg PO Q6H PRN for mild pain (scale 1-3) Tomorrow's Labs & Rationales: CBC to monitor WBC in the setting of infection Discharge Plan Discharge Disposition: home Anticipated Discharge (Day): tomorrow or the following day
[2016-10-30 07:10] VITALS: BP 102/68
[2016-10-30 08:39] LABS: ABSOLUTE BASOPHIL COUNT 0 /CUMM (0.0-0.2); ABSOLUTE EOSINOPHIL COUNT 0.1 /CUMM (0.0-0.7); ABSOLUTE LYMPH COUNT 1.5 /CUMM (1.2-3.4); BASOPHIL % 0 % (0.0-2.0); WHITE BLOOD CELL COUNT 17.2 /CUMM (4.8-10.8)
[2016-10-30 09:06] LABS: ABSOLUTE GRANULOCYTE CT 13.6 /CUMM (1.4-6.5); ABSOLUTE MONOCYTE COUNT 2.1 /CUMM (0.10-0.60); EOSINOPHIL % 0.5 % (0-5); MEAN CORPUSCULAR HGB CONC 32.9 G/DL (33.0-37.0); MEAN PLATELET VOLUME 7.6 FL (7.4-10.4); PLATELET COUNT 340 /CUMM (130-400); RBC DISTRIBUTION WIDTH 16.6 % (11.5-14.5)
[2016-10-30 09:17] LABS: HEMATOCRIT 39.5 % (37-47)
--- NOTE | 2016-10-30 14:21 | PN- Att Addend ---
Attending Addendum Attending Brief Note Patient seen and examined, feeling much better today. She denies any pain. She is now bacteremic with gram-negative rods. Vital Signs Date Time Temp Pulse Resp B/P Pulse O2 O2 Flow FiO2 Ox Delivery Rate 10/30 0710 97.9 71 19 102/68 94 Room Air 10/29 2244 98.3 73 19 100/60 92 Room Air 10/29 1745 98.0 88 20 92/58 94 Room Air 10/29 1454 97.8 99 18 103/59 95 Room Air on exam; aox3, nad. cv; s1,s2, rrr resp; clear abd; soft, nt, bs+. no cva tenderness. ext; no edema. Laboratory Tests 10/30 07 Chemistry Sodium (137 - 145 mmol/L) 146 H Potassium (3.5 - 5.1 mmol/L) 4.0 Chloride (98 - 107 mmol/L) 111 H Carbon Dioxide (22 - 30 mmol/L) 24 Anion Gap (5 - 16) 11 BUN (7 - 17 mg/dL) 40 H Creatinine (0.5 - 1.0 mg/dL) 1.4 H Estimated GFR (>60 ml/min) 36 L BUN/Creatinine Ratio (7 - 25 %) 28.6 H Hematology CBC w Diff NO MAN DIFF REQ WBC (4.8 - 10.8 /CUMM) 17.2 H RBC (4.20 - 5.40 /CUMM) 4.50 Hgb (12.0 - 16.0 G/DL) 13.0 Hct (37 - 47 %) 39.5 MCV (81.0 - 99.0 FL) 88.0 MCH (27.0 - 31.0 PG) 29.0 RDW (11.5 - 14.5 %) 16.6 H Plt Count (130 - 400 /CUMM) 340 MPV (7.4 - 10.4 FL) 7.6 Gran % (42.2 - 75.2 %) 79.0 H Lymphocytes % (20.5 - 51.1 %) 8.5 L Monocytes % (1.7 - 9.3 %) 12.0 H Eosinophils % (0 - 5 %) 0.5 Basophils % (0.0 - 2.0 %) 0 L Absolute Granulocytes (1.4 - 6.5 /CUMM) 13.6 H Absolute Lymphocytes (1.2 - 3.4 /CUMM) 1.5 Absolute Monocytes (0.10 - 0.60 /CUMM) 2.1 H Absolute Eosinophils (0.0 - 0.7 /CUMM) 0.1 Absolute Basophils (0.0 - 0.2 /CUMM) 0 PUBS MCHC (33.0 - 37.0 G/DL) 32.9 L A/P; 86-year-old female with past medical history significant for hypertension, hyperlipidemia, history of colon cancer status post resection, history of osteoarthritis admitted with sepsis secondary to UTI and also has right renal pelvic stone with MARY which could be secondary to dehydration versus obstructive uropathy. At this point patient is bacteremic with gram-negative rods and urine culture also growing gram-negative rods. Overall patient's leukocytosis improved and she is afebrile. Continue current antibiotic and follow-up on cultures to adjust antibiotics accordingly. Patient seen by urology and no interventions were recommended as patient is asymptomatic. Creatinine improving. Patient was encouraged to ambulate. DVT px: Heparin subcutaneous. If patient continues to improve likely she can be discharged home either tomorrow or Wednesday but the have to wait for the final cultures to come back.
--- NOTE | 2016-10-30 14:49 | Patient Discharge Instructions ---
Discharge Instructions General Discharge Information You were seen/treated for: Urinary tract infection Kidney stone Watch for these problems: Fever or shaking chills Nausea or vomiting Severe pain in your back or side Burning sensation with urination Urinating very little or not at all Special Instructions: Please see your primary care physician Dr. Meza within one week of discharge. Please follow up with urologist Dr. Pearce within two weeks of discharge for kidney stone. Please take all medications as prescribed. Diet Recommended Diet: Heart Healthy Activity Additional ACTIVITY Info: As tolerated with assistance Acute Coronary Syndrome Inclusion Criteria At DC or during hospital stay patient has or had the following: ACS DIAGNOSIS No Discharge Core Measures Meds if any: Prescribed or Continued at Discharge Meds if any: NOT Prescribed or Continued at Discharge Congestive Heart Failure Inclusion Criteria At DC or during hospital stay patient has or had the following: CHF DIAGNOSIS No Discharge Core Measures Meds if any: Prescribed or Continued at Discharge Meds if any: NOT Prescribed or Continued at Discharge Cerebrovascular accident Inclusion Criteria At DC or during hospital stay patient has or had the following: CVA/TIA Diagnosis No Discharge Core Measures Meds if any: Prescribed or Continued at Discharge Meds if any: NOT Prescribed or Continued at Discharge Venous thromboembolism Inclusion Criteria VTE Diagnosis No VTE Type NONE VTE Confirmed by (Test) NONE Discharge Core Measures - Per Current guidelines, there needs to be overlap - treatment for the first 5 days of Warfarin therapy. - If discharged on Warfarin prior to 5 days of - overlap therapy, the patient will need to be - assessed for post discharge needs including - *Post discharge parental anticoagulation - *Warfarin and/or parental anticoagulation education - *Follow up date to check INR post discharge At least 5 days overlap therapy as Inpatient No Meds if any: Prescribed or Continued at Discharge Note: Overlap Therapy is Warfarin and Anticoagulant Meds if any: NOT Prescribed or Continued at Discharge
[2016-10-30 14:52] VITALS: BP 125/68
[2016-10-30 22:53] VITALS: BP 136/72
[2016-10-31 06:45] VITALS: BP 128/72
--- NOTE | 2016-10-31 07:24 | PN- Housestaff ---
See Addendum Subjective Follow-up For: Sepsis 2/2 UTI Right renal pevlic stone MARY Subjective: No acute events over night. She continue to improve. Right back/flank pain has resolved. She denies nausea or vomiting. Review of Systems Constitutional: Reports: no symptoms. Objective Last 24 Hrs of Vital Signs/I&O Vital Signs Date Time Temp Pulse Resp B/P Pulse O2 O2 Flow FiO2 Ox Delivery Rate 10/31 0645 97.5 85 19 128/72 96 Room Air 10/30 2253 98.2 71 18 136/72 92 Room Air 10/30 1452 98.0 86 20 125/68 93 Intake & Output 10/31 1600 10/31 0800 10/31 0000 Intake Total 120 730 Output Total Balance 120 730 Intake, IV 10 Intake, Oral 120 720 Number 2 2 Bowel Movements Physical Exam General Appearance: Alert, Oriented X3, Cooperative, No Acute Distress HEENT: Atraumatic, PERRLA, EOMI, Mucous Membr. moist/pink Cardiovascular: Regular Rate, Normal S1, Normal S2, No Murmurs Lungs: Clear to Auscultation Abdomen: Soft, No Tenderness Extremities: No Edema Current Medications: Current Medications Sig/Deena Start time Last Medication Dose Route Stop Time Status Admin Acetaminophen 650 MG Q6P PRN 10/29 1445 AC PO Atorvastatin Calcium 5 MG DAILY 10/30 1000 AC 10/31 PO 0954 Ceftriaxone Sodium 1,000 MG DAILY 10/30 1000 AC 10/31 IV 0954 Heparin Sodium 5,000 UNIT Q8 10/29 2200 AC 10/31 (Porcine) SC 0602 Morphine Sulfate 2 MG Q6P PRN 10/29 1445 AC IV Patient Medication 1 ED .STK-MED ONE 10/30 1410 NC Teaching ED 10/30 1411 Polyethylene Glycol 17 GM DAILY 10/30 1000 AC 10/30 PO 0834 Senna/Docusate Sodium 1 TAB BID 10/30 1000 AC PO Last 24 Hrs of Lab/Didier Results Last 24 Hrs of Labs/Mics: Laboratory Tests 10/31/16 0650: Anion Gap 9, Estimated GFR 47 L, BUN/Creatinine Ratio 24.5, CBC w Diff NO MAN DIFF REQ, RBC 4.52, MCV 86.7, MCH 28.9, RDW 15.9 H, MPV 7.4, Gran % 72.4, Lymphocytes % 13.1 L, Monocytes % 12.0 H, Eosinophils % 2.1, Basophils % 0.4, Absolute Granulocytes 6.6 H, Absolute Lymphocytes 1.2, Absolute Monocytes 1.1 H, Absolute Eosinophils 0.2, Absolute Basophils 0, PUBS MCHC 33.3 Assessment/Plan Assessment: 86 y/o F with PMHx of HTN, HLD and colon cancer in 1999 s/p resection who is admitted for sepsis 2/2 UTI, with a right renal pelvic stone found on imaging. #Sepsis 2/2 UTI: On day 3 of ceftriaxone with significant clinical improvement. Remains afebrile and with improving leukocytosis. BCx and UCx from admission both growing gram negative rods, that is pansensitive * Switch ceftriaxone 1 g IV daily to amoxicillin 875 mg twice a day(total 14 days) * Patient will be discharged today * No interventions planned by urology as patient is asymptomatic. Follow up as outpatient for possible right ESWL. #MARY: Cr has improved to 1.1 from 1.9 on admission. Most likely prerenal given improvement with IV fluids. * Patient will be asked to follow with primary care doctor post discharge #HTN: Blood pressure stable. Takes amlodipine 2.5 mg PO daily and lisinopril 20 mg PO daily at home which were held due to hypotension. * Consider resuming prior to admission amlodipine if blood pressure increases. * Continue to hold lisinopril in the setting of MARY. Diet: Heart Healthy DVT PPx: HSQ and ALPs CODE: FULL Problem List: 1. Sepsis due to urinary tract infection Pain Ratin Pain Location: NA Pain Goal: Remain pain free Pain Plan: Assessment and plan Tomorrow's Labs & Rationales: None discharged today
[2016-10-31 08:20] LABS: ABSOLUTE BASOPHIL COUNT 0 /CUMM (0.0-0.2); ABSOLUTE EOSINOPHIL COUNT 0.2 /CUMM (0.0-0.7); ABSOLUTE GRANULOCYTE CT 6.6 /CUMM (1.4-6.5); ABSOLUTE LYMPH COUNT 1.2 /CUMM (1.2-3.4); ABSOLUTE MONOCYTE COUNT 1.1 /CUMM (0.10-0.60); BASOPHIL % 0.4 % (0.0-2.0); EOSINOPHIL % 2.1 % (0-5); GRANULOCYTE % 72.4 % (42.2-75.2); HEMATOCRIT 39.2 % (37-47); MEAN CORPUSCULAR HGB 28.9 PG (27.0-31.0); MEAN CORPUSCULAR HGB CONC 33.3 G/DL (33.0-37.0); MEAN CORPUSCULAR VOLUME 86.7 FL (81.0-99.0); MEAN PLATELET VOLUME 7.4 FL (7.4-10.4); PLATELET COUNT 336 /CUMM (130-400); RBC DISTRIBUTION WIDTH 15.9 % (11.5-14.5); RED BLOOD CELL CT 4.52 /CUMM (4.20-5.40); WHITE BLOOD CELL COUNT 9.1 /CUMM (4.8-10.8)
[2016-10-31] MEDS ORDERED: AMOXICILLIN875 M1 PO (12:37)
--- NOTE | 2016-10-31 20:51 | Discharge Summary ---
Visit Information Visit Dates Admission Date: 10/29/16 Discharge Date: 10/31/16 Hospital Course Course Attending Physician: JANIA SHAH MD Primary Care Physician: CORWIN ANAND,HOLLY Carter Consulting Request: Consulting Specialty: Urology Consulting Physician: Hamilton Pearce MD Reason for Consult: UTI with non obstructing right renal pelvis stone Hospital Course: Ms. Millan is a 86 y/o F with PMHx of HTN, HLD, osteoarthritis and colon cancer in 1999 s/p resection who presented with right-sided flank/back pain, associated with chills and nausea x 2 days. On initial presentation, she was afebrile and hemodynamically stable. However within a few hours, her blood pressure dropped down to 100s/50s and she became tachycardic to 102. Labs were significant for WBC count of 21 with 6 bands, bicarbonate 20, anion gap 17, BUN/ creatinine 46/1.9 and lactic acid 2 which later improved to 1 with fluids. Urinalysis was positive for trace leukocyte esterase and 5-[address] Abdomen/ Pelvis revealed a 0.5 cm stone within a mildly dilated right renal pelvis. Patient was fluid resuscitated with normal saline boluses x 2, administered morphine and 1 dose of ceftriaxone and admitted for sepsis secondary to urinary tract infection. Below are the issues that were addressed during current admission: #Sepsis secondary to UTI: Patient met SIRS criteria for sepsis on admission, with leukocytosis and tachycardia. Patient received gentle hydration with normal saline with improvement of blood pressures. She was continued on IV ceftriaxone, receiving a total of 3 days with significant clinical improvement including resolution of leukocytosis and symptoms. Urine and blood cultures were obtained, which later came back positive for gram negative rods with urine cultures growing greenwood-sensitive Escherichia coli. Patient was discharged on amoxicillin 875 mg PO BID for 11 days for a total of 14-days of antibiotics for complicated UTI in the setting of MARY. #Right renal pelvic stone: Patient was seen by urologist Dr. Pearce who felt that no urological intervention was indicated at this time as the stone was nonobstructing and patient was asymptomatic. Patient will follow up with Dr. Pearce for possible right ESWL in the near future. #MARY: This was likely pre-renal secondary to sepsis and dehydration. Patient's prior to admission lisinopril was held. MARY had resolved by day of discharge, with improvement of creatinine back to its baseline of 1.1. Patient will resume lisinopril on discharge. Allergies: Coded Allergies: codeine (UNKNOWN 10/29/15) Disposition Summary Disposition Principal Diagnosis: Sepsis secondary to urinary tract infection Additional Diagnosis: Right renal pelvic stone Acute kidney injury Discharge Disposition: home or self care Discharge Instructions General Discharge Information Code Status: Full Code Patient's Diet: Heart Healthy Patient's Activity: Please see your primary care physician Dr. Meza within one week of discharge. Please follow up with urologist Dr. Pearce within two weeks of discharge for kidney stone. Please take all medications as prescribed. Follow-Up Instructions/Appts: As tolerated with assistance Medications at Discharge Discharge Medications: Continue taking these medications: Rosuvastatin Calcium (Crestor) 5 MG TABLET 1 Tablet ORAL DAILY Qty = 45 Comments: Last Taken: 10/31/16 Time: 0900 AM Lisinopril (Lisinopril) 20 MG TABLET 1 Tablet ORAL DAILY Qty = 90 Comments: NOT GIVEN Amlodipine Besylate (Amlodipine Besylate) 2.5 MG TABLET 1 Tablet ORAL DAILY Qty = 90 Comments: NOT GIVEN Start taking the following new medications: Amoxicillin (Amoxicillin) 875 MG TABLET 1 Tablet ORAL TWICE DAILY Qty = 22 No Refills Comments: NOT GIVEN Copies To: CORWIN ANAND,HAMILTON MONSIVAIS MD Attending MD Review Statement Documenting Attending: CARMEL JAY MD Other Findings: The patient was seen and agree with the plan of care upon discharge.
== END 2016-10-31 13:45 | DRG 872 ==
LOC: ENRESERVTM → ENRESERVDT → ERH 10:13 → 2NA 13:19 → ERHI 13:19 → 2NA 17:13
PROVIDERS: Dermatology; Internal Medicine; Physician Assistant; ADMIT Hospitalist
DX: A41.9 Sepsis, unspecified organism (principal); N17.9 Acute kidney failure, unspecified; N39.0 Urinary tract infection, site not specified; N20.0 Calculus of kidney; I10 Essential (primary) hypertension; E78.5 Hyperlipidemia, unspecified; Z85.038 Personal history of other malignant neoplasm of large intestine
CPT/HCPCS: 2NASP; 36415; 74176; 81001; 82436; 87040; 87086; 96361; 96374; 96375; 99291; J0696; J1644; J2405

== ENCOUNTER → 2017-09-17 | Day surgery (SDC) | payer OTHER, MEDICARE ==
[~2017-09-17] VITALS: Ht 157.5 cm; Wt 83.9 kg
[~2017-09-17] MED LIST: AMLODIPINE BES2.5 M1 PO; AMOXICILLIN875 M1 PO; CEFUROXIME500 MG PO; CRESTOR5 M1 PO; LISINOPRIL20 M1 PO
--- NOTE | 2017-09-17 10:07 | Operative Report ---
Operative/Inv Procedure Report Surgery Date: 09/17/17 Name of Procedure: right ureteroscopy with laser lithotripsy and stent placement Pre-Operative Diagnosis: right UVJ stone with hydronephrosis Post-Operative Diagnosis: same Estimated Blood Loss: scant Surgeon/Kettle Skimmer: Dana Moses MD Anesthesia: laryngeal mask airway Drains: 6x22cm stent Specimens: stone fragments Complications: none Condition: stable Operative Indication: right UVJ stone with hydronephrosis Operative/Procedure Note Note: 87yo female with a hx of right renal stone s/p ESWL with good fragmentation. She had her right stent removed after renal US with no stones seen in the kidney and no hydronephrosis but she later developed right side pain with hydronephrosis and right steinstrausse? She was then scheduled for right ureteroscopy with laser lithotripsy to address the steinstrausse. She was given th risks, benefits and alternatives of the surgery and all questions were answered. Patient was taken to the operating room and placed in a supine position. Cystoscopy was performed and the bladder was globally inspected. No anatomical abnormalitie were noted. No stones were seen in the bladder. Her right ureter was cannulated with a Sensor wire. A semi-rigid ureteroscope was then placed and the 1cm stone was seen in the UVJ. The stone wsa fragmented to smaller sizes and grasped with the zero tip basket and removed. One fragment did go up to the kidney. The calyces were examined with the flexible ureteroscope but the stone was unable to be seen so a full strength retrograde pyelogram was performed. The calyces were examined again and the stone fragment was found and lasered in the ureter. The fragments were all removed. No other stone fragments were appreciated. A 6x22cm stent was then placed using the Sensor wire. Bladder was emptied. The patient tolerated the procedure well and was transferred to the recovery room in stable condition. Findings: 1cm UVJ stone, smooth hard stone Discharge Disposition: PACU
--- NOTE | 2017-09-17 17:12 | RADIOLOGY REPORT ---
EXAMINATION: XR ABDOMEN CLINICAL INDICATION: Right ureteroscopy, lithotripsy, retrograde and stent insertion in OR. COMPARISON: CT scan of the abdomen and pelvis 09/14/2017. TECHNIQUE: 9 intraprocedural images of the right abdomen were obtained. FINDINGS: The initial 2 images demonstrate a catheter in the right ureter. Retrograde pyelogram demonstrates a dilated renal collecting system. There is placement of a ureteric stent over a guidewire. There is good drainage of the contrast from the renal collecting system. The distal ureteric stent and pelvis are not included on the available images. Fluoroscopy time: 0.2 minutes. IMPRESSION: 1. Intraprocedural images were obtained. 2. Please see clinical notes for further operative details.
== END ==
LOC: STS 03:02
DX: N13.2 Hydronephrosis with renal and ureteral calculous obstruction (principal); Z87.442 Personal history of urinary calculi; N28.1 Cyst of kidney, acquired; I10 Essential (primary) hypertension
CPT/HCPCS: 74018; C2617; J0690; J2250